=== PATIENT | female | born 1955 | race Caucasian/White ===

== ENCOUNTER 2018-02-08 15:03 | Outpatient (RCR) | payer OTHER, MEDICARE, BC, SELFPAY ==
--- NOTE | 2018-02-08 08:02 | IE_ITS ---
Date: February 08, 2018 Referring: Reji Lombardo M.D. M.D. Diagnosis: bilateral LE lymphedema P.T. Diagnosis: stage II secondary bilateral LE lymphedema SUBJECTIVE: History of Present Illness: Pavan is a 62 year old female reporting in 1972 she was attacked by fire ants on bilateral legs while in [employer]. She reports that following this incident she experienced lymphedema and has been dealing with bilateral LE lymphedema since that time. She states she has received most of her care at the [facility] in [place],including an inpatient stay at one point. She has also been seen at this clinic, [facility], for lymphedema management in the past. She states that due to living alone, her obesity and limited mobility she is having difficulty performing her lymphedema management program at home, including self manual lymphatic drainage and compression wrapping. She does wear Jobst panty hose 30 to 40 mmhg pressure, but they do not fit her at this time. She also has a pair of bilateral Velcro calf and thigh compression garments that she is not able to wear at this time and she has a pneumatic pump at home for bilateral LEs, but it does fit at this time. She states in the past she has hired caregivers to come in daily to assist her with putting her legs in the pneumatic pump and assisting her with her compression garments but she does not have a caregiver since September 2017 and has had increased swelling since September due to inability to maintain the lymphedema management. Patient's goals: Direct treatment of lymphedema including manual lymphatic drainage and compression wrapping in order to decrease limb size to fit into her compression garments and pneumatic pumps, and to be able to restart her home lymphedema management program. Pain Rating: Currently 6/10 Pain Location: Bilateral hips, knees and ankles. Prior Level of Function: Prior to 1972 she had no issues with lymphedema. Since then she has had ongoing issues with her LEs and LE lymphedema, affecting her functional mobility. Current Level of Function: Uses a single point cane for gait mobility and occasionally a walker as needed. Requires elevating bed for legs and head due to LE lymphedema and obstructive sleep apnea. The sleep apnea requires her head to be elevated and the use of CPAP at night. She has a lot of difficulty walking, going up and down stairs, bending to tie her shoes and cut her toenails and put her socks on. The lymphedema swelling affects her appearance. She has difficulty finding clothing that fits, and wears one pair of pants that she has had for years due to the size of her legs. She has difficulty finding shoes and socks that fit, and this affects her self image and appearance. Bilateral legs feel weak with all functional mobility. Previous Treatment: As [facility] L[facility]hedema care at the [facility] in [place] and lymphedema care here at this clinic, see previous note for details. Social: She lives alone in a one level home, no stairs. Baseline mobility: Gait with walker or cane, uses elevating bed for head and legs. 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 She currently has two kittens that she is caring for. She finds it difficult to do so due to difficulty reaching down and cleaning after them. She may re-home them as a result. She is very active in her lymphedema management and plan. Will bring in her garments and compression wraps that she has obtained over the years at her next session. 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 Patient has an extensive medication list. She is allergic to Oxycodone. Quality of Life: __x__ Fair Standardized Measures: LEFS score: __[75% disability]__ Lymphedema Quality of Life Study: see note for details. OBJECTIVE: Gait: The patient enters the clinic with Crocs on for shoes and use of a single point cane. Step through gait pattern with decreased stride, decreased push off , decreased heel strike bilaterally and decreased vishal with a slightly widened base of support. Palpation: The patient is slightly tender to palpation throughout bilateral LEs , primarily at the ankle and lower feet. Skin tone: Flesh tone with slightly pink at distal limbs bilaterally, but overall skin tone is good. No signs of wounds, cellulitis or infection throughout either LE. Edema: Positive for 1+ edema and lymphedema bilateral LEs from hips to dorsum of feet and positive Stemmer's sign bilateral 2nd toes. Left LE appears larger than the right. Circumferential measurements: right LE left LE mid foot: 25 cm. 23.5 cm. 10: 46 cm. 46 cm. 20: 58 cm. 59 cm. 30: 63 cm. 71.5 cm. 40: 58 cm. 66 cm. 50: 65 cm. 74 cm. 60: 79 cm. 81 cm. ROM: Bilateral LE ROM is WFL. Bilateral hip flexion 110 , knee ROM 0 extension to 100 flexion, limited by obesity and ankle ROM is WNL bilaterally. Strength: 3/5 bilateral hip flexion, 4/5 bilateral quadriceps, 4/5 bilateral hamstrings, 5/5 dorsiflexion and plantar flexion bilaterally. Neurological: The patient is intact to light touch for proprioception through bilateral LEs. Motor control and kinestatic awareness are intact. No sensory deficits noted. No peripheral neuropathy. Treatment: Initial evaluation and assessment of functional mobility IE: 28734 x1 Patient Education: The patient was issued a lymphedema educational packet. Reviewed with patient the anatomy and physiology of lymphatic system with descriptions and diagrams. The patient is very familiar with lymphedema, having had this since 1972, but review was appreciated. Issued patient a handout and instructed in skin care and hygiene fibrosis, prevention of lymphedema avoiding infection, contraindications to lymphedema treatments and care of compression garments. The patient verbalized understanding of all above educational information. Discussed with patient the management of lymphedema at this time, including Complete Decongestive Therapy (CDT), consisting of: 1) skin care and hygiene: patient demonstrating good skin care, slightly dry skin at bilateral ankles and heels. She plans to attempt to apply lotion daily. She has Eucerin at home. She has difficulty reaching her feet due to her body mass. 2) manual lymphatic drainage: patient unable to reach LEs to perform self MLD. She is able to reach upper body for lymphatic system activation. Will instruct patient in upper body MLD sequence at next treatment and begin an active manual lymphatic drainage treatment plan 2x per week x4 weeks for bilateral LE lymphedema in order to reduce limb size to assist her in fitting into pneumatic pumps at home so they can provide the MLD she needs on a daily basis. The patient will need to explore options for hiring a caregiver again or someone to come to her home to assist the donning of the pneumatic pumps. 3) compression: at this time the patient wishes to proceed with compression wrapping with TG soft underlay and short stretch compression bandages. The patient was wrapped today. TG soft underlay was applied from foot to thigh, 3 -12 cm. short stretch bandages were applied to bilateral LEs, reaching to just above mid thigh. The patient reported that the compression wraps felt comfortable. She was instructed she can wear the compression wraps up to 48 hours, but instructed to remove with any signs of decreased sensation in the feet, pain or discomfort. She verbalized understanding. She is to bring in her compression wraps and foam pieces at her next session to work with therapy on compression wrapping that will work for her over the treatment plan. She does have Jacquelyn panty hose and Velcro compression garments at home, therefore will not need a longer term compression garment, but she does need to fit into these garments in order to wear them. 4) exercise and elevation: the patient finds it difficult to exercise due to obesity, hip, knee and ankle pain. Discussed with patient the option of aquatic therapy for full body conditioning and exercise. She is to consider this. The patient was performing a MOVE program at the [place], uncertain if she will continue this at this time Due to difficulty laying flat secondary to obstructive sleep apnea and obesity the patient has a difficult time elevation LEs above the heart. She is able to elevate above the hip by elevating the bed at her feet. The patient was instructed to elevate LEs 30 minutes, 1x per day. Direct treatment time: 60 minutes Total treatment time: 60 minutes ASSESSMENT: Patient is a 62-year-old female, referred for PT services with the diagnosis of bilateral LE lymphedema. Patient presents with clinical signs and symptoms consistent with stage II secondary bilateral LE lymphedema, as demonstrated by the following impairment level findings: 1) circumferential measurements 2) 1+ pitting edema with palpation 3) edema in all joints and dorsum of both feet 4) (+) Stemmer's sign bilateral feet Impairments are contributing to the following functional limitations: As listed above, including difficulty finding socks, shoes and clothing that fit due to LE swelling. Difficulty performing ADLs and self care due to LE swelling. Difficulty walking, going up and down stairs and performing functional activities due to LE swelling. See functional limitations indicated above. Patient is assessed as: __x__ Moderate 82023 complexity, based on the following : History: personal limitations include living alone, obesity and deconditioning making it difficult to perform her lymphedema self management program and requiring her to hire help to come into her home on a daily basis for application of compression garments and pneumatic pumps. This may limit her effectiveness with lymphedema management alf. Medical complications limit her ability to perform exercise and elevation of the LEs. Examination: body parts, bilateral LE lymphedema, functional limitations as listed Presentation: Stable Decision-Making: Moderate complexity 75 % Disability based on LEFS Patient requires skilled PT intervention to remediate the above functional limitations to return to: __x__ Improve functional mobility __x__ Improve Quality of Life G-Codes Patient's primary functional limitation is in the category of: __x__ Other Physical/Occupational Therapy primary functional limitation: GP [id number] Projected goal: __x__ Other Physical/Occupational Therapy primary functional limitation: [id number] GOALS STG: __4__ weeks. 1) patient independent with self manual lymphatic drainage for upper body 2) patient independent with issued LE therapeutic exercise program in supine and sitting 3) patient independent in wear of compression short stretch bandages for reduction of lymphedema 4) patient to have 1 cm. reduction in bilateral limb lymphedema LTG: __x6__ weeks. 1) patient able to don and doff Velcro compression garments bilateral LEs 2) patient with 2 cm. reduction in bilateral limb LE lymphedema 3) patient with a plan in place for independent, home management of lymphedema PLAN: Patient to be seen 2x per week, for 6 weeks, adjusting frequency of visits per patient symptoms and response to treatment. Treatment to include: Manual therapy - 04771 - manual lymphatic drainage of bilateral LE lymphedema and instruction in self MLD sequence for bilateral LE lymphedema. Therapeutic exercise - 24754 - bilateral LE lymphedema in supine and while seated Aquatic therapy is recommended for overall body conditioning and lymphedema reduction. Self care training for lymphedema management program, including all aspects of complete decongestive therapy, skin care and hygiene, manual lymphatic drainage , compression wraps or compression garments, use of pneumatic pumps, exercise program and elevation of LEs. Thank you for this referral. Please do not hesitate to contact me with any questions or concerns regarding this patient's plan of care. Sally Garzon PT, CLT Please sign and return to our clinic showing agreement with our POC.......................... Reji Lombardo M.D.
== END 2018-02-10 23:59 | disposition home or self-care (01) ==
LOC: PT 15:03
PROVIDERS: PCP Internal Medicine; Referring Provider Internal Medicine; Visit Provider Internal Medicine
DX: I89.0 Lymphedema, not elsewhere classified (principal)
CPT/HCPCS: 97162

== ENCOUNTER 2019-06-13 21:36 | Emergency (ER) | payer OTHER, MEDICARE, BC, SELFPAY ==
[2019-06-13 21:40] VITALS: BP 172/88; PULSE 117; RESP 21; TEMP 36.6; O2SAT 94
--- NOTE | 2019-06-13 21:44 | W.ED.GENAD ---
Discharge Plan Disposition Patient Disposition: HOME Condition: Good Discharge Details Chief Complaint: Cellulitis Clinical Impression: Cellulitis of leg, right Primary Care Provider: [facility] ED Provider: [facility] Home Meds and New Rx's Prescriptions: New clindamycin HCl 150 mg capsule 450 mg PO TID 10 Days Qty: 90 RF: 0 No Action multivitamin [Daily Multi-Vitamin] 1 EACH tablet 1 tab PO DAILY RF: 0 aspirin 81 MG tablet,delayed release (DR/EC) 81 mg PO DAILY RF: 0 levothyroxine 25 MCG tablet 100 mcg PO DAILY RF: 0 potassium 99 MG tablet 4 tab PO BID RF: 0 calcium carbonate 500 MG tablet,chewable 1 tab PO BID RF: 0 omeprazole 20 MG tablet,delayed release (DR/EC) 20 mg PO DAILY RF: 0 hydrochlorothiazide 25 MG tablet 25 mg PO .QHS RF: 0 zolpidem 5 MG tablet 10 mg PO .QHS PRNRF: 0 loratadine [Claritin] 10 MG tablet 10 mg PO .QHS RF: 0 Stool Softner 3 tab PO .QHS RF: 0 simethicone [Gas-X] 80 MG tablet,chewable 1 tab PO PRN PRNRF: 0 atorvastatin 40 mg Tablet 40 mg PO DAILY RF: 0 meloxicam 15 mg Tablet 15 mg PO DAILY RF: 0 zinc 50 mg Tablet 50 mg PO DAILY RF: 0 Discharge Instructions Instructions: Cellulitis (ED) Additional Instructions: At this time you have notable cellulitis of your right lower extremity. Please monitor extremely closely, take pictures every 24 hours from the same positions to evaluate for change. If you notice any spreading past the line that we stew please return immediately. If you do not notice any improvement over the next 48 to 72 hours please return. Please take the antibiotic as directed. Please also take this with yogurt that has live cultures like activity. If you notice any worsening of your symptoms, or any new symptoms such as vomiting, diarrhea, fever, chills, shortness of breath, chest pain, numbness, weakness, or fainting , please return immediately to the emergency department for reevaluation. Please follow up with your primary care provider as soon as possible for reassessment and reevaluation. As always, it was a pleasure participating in your medical care today. Referrals: [facility] [Primary Care Provider] - Medical Decision Making This is a 63-year-old female with chronic lymphedema who presents for signs and symptoms concerning for cellulitis of the right lower extremity. Symptoms have been present for the last 2 or 3 days, and last 24 hours though she has developed mild fever. She has been taking her Keflex which she has at home for the last 2 years in the scenarios where she does develop mild cellulitis. Unfortunately after 24 hours of treatment with this she has not had any improvement in fact she has had slight worsening. Exam demonstrates mild to moderate redness of the notable anterior lower extremity of the trujillo. There is no evidence of fluctuance but there is mild induration. Signs and symptoms clinically consistent with cellulitis, and inconsistent with necrotizing fasciitis, compartment syndrome or other abnormality. Although the patient is afebrile here, she is mildly tachycardic which may be secondary to her current ambulatory status. We will gently rehydrate, give IV clindamycin, evaluate for indications for admission. 11:25 PM Patient's vital signs have normalized. Laboratory work-up is returned, she does have mild white count of 16, with a mild left shift. Electrolytes normal. Lactate is 0.9. Patient was given IV clindamycin. On reassessment after 1 hour and 40 minutes she actually is beginning to note notable improvement of the redness. I did discuss with the patient admission/observation to the hospital , and at this time through notable discussion, weighing the risks and benefits, utilizing a shared decision making process, and with a very clear discussion on the benefit of admission and the risks associated with discharge including the unlikely but potential worst case scenario of or lifelong disability the patient has refused admission and would like to go home. Respecting the patient's wishes, they will be discharged home. Lactate is unremarkable, and she is actually demonstrating improvement of her cellulitis. However I had a long discussion with her regarding red flags for which to return, the importance of very prompt and close follow-up, close observation of her cellulitis. Patient understands this. She will be given doses of clindamycin to go home with, as well as a prescription to fill. I have extensively reviewed the treatment plan and discharge instructions with the patient and their family. I have addressed all patient concerns at this time. The patient and family was made aware of what symptoms to monitor for that would warrant a return to the emergency department. Discussed the plan with the patient and family, they demonstrate verbal understanding and agreement with our assessment and plan at this time. HPI General Date/Time Provider Initiated Documentation: 06/13/19 21:37. HPI Narrative: Is a 63-year-old female with a past medical history of chronic lymphedema, and previous episodes of cellulitis secondary to this lymphedema who presents today for evaluation of right lower extremity cellulitis. Patient states that for the last 2 to 3 days she has noticed mild redness. Over the last 24 hours though she is developed fever and mild chills. Fever responds well to Tylenol and Motrin. She has had Keflex on standby which she always has in the scenario where she developed mild cellulitis. She has been taking this for the last day but this is not changed any of her symptoms. She does note that the prescription is 2 years old though. She denies any previous history of DVT. Denies PE risk factors such as recent long car rides, immobilization, recent surgery, prior history of DVT or PE, family history of PE or DVT, morbid obesity, exogenous estrogen and smoking, hemoptysis, history of cancer. She has no other complaints at this time. No other modifying factors. She states that there are signs and symptoms at this time feel identical to previous episodes of cellulitis. Related Data Home Medications Medication Instructions Recorded Confirmed Stool Softner 3 tab PO .QHS 02/22/13 06/13/19 aspirin 81 mg PO DAILY 02/22/13 06/13/19 calcium carbonate 1 tab PO BID 02/22/13 06/13/19 hydrochlorothiazide 25 mg PO .QHS 02/22/13 06/13/19 levothyroxine 100 mcg PO DAILY 02/22/13 06/13/19 loratadine [Claritin] 10 mg PO .QHS 02/22/13 06/13/19 multivitamin [Multi Vitamin Daily] 1 tab PO DAILY 02/22/13 06/13/19 omeprazole 20 mg PO DAILY 02/22/13 06/13/19 potassium 4 tab PO BID 02/22/13 06/13/19 zolpidem 10 mg PO .QHS PRN 02/22/13 06/13/19 simethicone [Gas-X] 1 tab PO PRN PRN 09/14/15 06/13/19 atorvastatin 40 mg PO DAILY 01/01/20 01/01/20 clindamycin HCl 450 mg PO TID 10 Days #90 cap 06/13/19 meloxicam 15 mg PO DAILY 06/13/19 06/13/19 zinc 50 mg PO DAILY 06/13/19 06/13/19 Previous Rx's Medication Instructions Recorded clindamycin HCl 450 mg PO TID 10 Days #90 cap 06/13/19 Allergies Allergy/AdvReac Type Severity Reaction Status Date / Time oxycodone HCl [From Percocet] Allergy Severe face swells Unverified 06/13/19 21:44 General Stated Complaint: Cellulitis ARTEM: 3 Review of Systems All systems reviewed & are unremarkable except as noted in HPI and below PFSH Social History Smoking/Tobacco Use Status: Current every day Tobacco Type: cigarettes Alcohol Intake: never Drug use: Never Substance use type: does not use Do you feel safe at home: Yes Do you feel safe in your relationship?: Yes Exam Narrative Exam Narrative: 1.Const: Well-nourished, Well-developed, appearing stated age 2.Eyes: PERRL, no conjunctival injection, and symmetrical lids. 3.ENT: Atraumatic external nose and ears. Moist MM. Neck: Symmetric, trachea midline, No thyromegaly. 4.CVS: +S1/S2, No murmurs or gallops. Peripheral pulses 2+ and equal in all extremities. Brisk capillary refill in all extremities. 5.RESP: Unlabored respiratory effort. Clear to auscultation bilaterally. No wheezes rales or rhonchi 6.GI: Soft, Nontender/Nondistended, No hepatosplenomegaly. No guarding or rebound. 7.MSK: Normocephalic/Atraumatic, Extremities w/o deformity or ttp No cyanosis or clubbing, Normal movement of all extremities. Chronic lymphedema in her lower extremities bilaterally. Mild to moderate erythema in the right lower extremity, in conjunction with mild induration. No fluctuance or evidence of abscess. No acute calf tenderness. Dorsalis pedis and posterior tibial pulses are +2 bilaterally, brisk capillary refill is present. Pain is not out of proportion. No subcutaneous crepitus. 8.Skin: Warm, Dry. No rashes or lesions. 9.Neuro: hand wrapper operator II-XII grossly intact. Sensation grossly intact, no focal neurologic deficits. 10.Psych: (AAO) x3. Appropriate mood and affect Course Vital Signs Vital signs: Vital Signs Temperature 36.6 C 06/13/19 21:40 Pulse 117 H 06/13/19 21:40 Respiratory Rate 21 06/13/19 21:40 Blood Pressure 172/88 H 06/13/19 21:40 Pulse Oximetry 94 L 06/13/19 21:40 Temperature 36.6 C 06/13/19 21:40 Temperature Source Skin 06/13/19 21:40 Pulse 117 H 06/13/19 21:40 Respiratory Rate 21 06/13/19 21:40 Blood Pressure 172/88 H 06/13/19 21:40 Blood Pressure Position Sitting 06/13/19 21:40 Pulse Oximetry 94 L 06/13/19 21:40 Oxygen Delivery Method Room Air 06/13/19 21:40 Oxygen Flow Rate 0 06/13/19 21:40 Pain Level 5 06/13/19 21:40 Lab/Test Results Lab/Test Results: 06/13/19 21:43 Blood Blood Culture - Pending 06/13/19 21:43 Blood Blood Culture - Pending
[2019-06-13] MEDS: CLINDAMYCIN 600 MG/50 ML BAG 100 MG IVPB (22:10)
[2019-06-13] MEDS: Normal Saline 1,000 ML 1000 ML IV (22:12)
[2019-06-13 22:18] LABS: Abs Immature Grans 0.05 k/cumm (0.0-0.09); Absolute Basophil Count 0.02 k/cumm (0.0-0.2); Absolute Eosinophil Count 0.02 k/cumm (0.0-0.7); Absolute Lymphocyte Count 1.31 k/cumm (1.2-3.4); Basophils % 0.1; Eosinophils % 0.1; HCT 46.9 % (36.0-46.0); HGB 16.4 g/dL (12.0-15.5); Immature Grans % 0.3; Mean Corpuscular Hemoglobin 31.8 pg (27.0-33.0); Mean Corpuscular Volume 91.1 fL (80-95); Mean Platelet Volume 12.1 fL (8.0-11.0); Monocytes % 3.4; Neutrophils % 88.1; Platelet Count 154 x1000/uL (130-400); RBC 5.15 m/cumm (4.00-5.20); RBC Distribution Width 13.8 % (11.7-14.6); White Blood Cell Count 16.32 k/cumm (4.4-10.8)
[2019-06-13 22:19] LABS: Absolute Monocyte Count 0.55 k/cumm (0.11-0.7); Absolute Neutrophil Count 14.38 k/cumm (1.2-6.7)
[2019-06-13 22:30] LABS: ALT 30 U/L (14-59); AST 20 U/L (15-37); Albumin 3.1 g/dL (3.4-5.0); Alkaline Phosphatase 93 U/L (46-116); Anion Gap 12.3 mmol/L (3-11); BUN 15 mg/dL (7-18); CO2 26.7 mmol/L (21.0-32.0); Calcium 8.9 mg/dL (8.5-10.1); Chloride 101 mmol/L (98-107); Glucose 113 mg/dL (74-106); Potassium 3.5 mmol/L (3.5-5.1); Sodium 140 mmol/L (136-145); Total Protein 7.4 g/dL (6.4-8.2)
[2019-06-13 22:51] LABS: Lactate 0.9 mmol/L (0.6-1.4)
[2019-06-13] MEDS: Clindamycin 150 MG CAP, 12 CAPS/BTL 450 MG PO (23:35)
[2019-06-13 23:38] VITALS: BP 132/78; PULSE 101; RESP 18; TEMP 36.7; O2SAT 97
== END 2019-06-13 23:40 | disposition home or self-care (01) ==
PROVIDERS: Emergency Provider Student in an Organized Health Care Education/Training Program; PCP Internal Medicine
DX: L03.115 Cellulitis of right lower limb (principal); Z87.2 Personal history of diseases of the skin and subcutaneous tissue
CPT/HCPCS: 80053; 87040; 96361; 96365; 99284; 83605; 85025

== ENCOUNTER 2020-06-30 00:23 | Outpatient (CLI) | payer OTHER, MEDICARE, BC, SELFPAY ==
--- NOTE | 2020-06-30 13:24 | DI.MAMMO_ITS ---
EXAM: MG MAMMO SCREENING CLINICAL HISTORY: SCREENING, Z12.39,[id number] TECHNIQUE: Bilateral full field digital CC and MLO mammographic images were obtained with 3D tomosyn thesis and utilizing computer aided detection (CAD). COMPARISON: Available for comparison. FINDINGS: Masses/Architectural Distortion: No suspicious masses are present. There are scattered fibronodular densities. Microcalcifications: No suspicious pleomorphic-type are seen. Skin Thickening/Nipple Retraction: None. IMPRESSION: 1. No significant interval change with no specific features of malignancy noted. 2. Unless there is more urgent need, screening mammography is recommended, as per [employer] guidelines. BI-RADS Category 2 - Benign Findings Breast Density - Category B - Scattered areas of fibroglandular density Breast density category C or D implies that the patient has dense breast tissue. Dense breast tissue is very common and is not abnormal but dense breast tissue can make it harder to find cancer on a ma mmogram. Also, dense breast tissue may increase their breast cancer risk. This information about the result of the mammogram report was provided to the patient to raise their awareness. Use this report when you speak with the patient about their risks for breast cancer, which includes their family hist ory. At that time, you may recommend for more screening tests (Ultrasound or MRI) as they might be us eful based on their risk. A negative radiographic report should not delay biopsy if a dominant or clinically suspicious mass is present. Up to ten percent of cancers are not identified on mammography. A negative report may reinforce clinical impression. Adenosis and dense breasts may obscure an underlying neoplasm. False positive reports average 6 to 10%. Patient will receive a letter notifying them of these results.
== END 2020-06-30 00:43 ==
PROVIDERS: PCP Internal Medicine; Visit Provider Internal Medicine
DX: Z12.31 Encounter for screening mammogram for malignant neoplasm of breast (principal)
CPT/HCPCS: 77063; 77067

== ENCOUNTER 2020-07-02 16:18 | Emergency (ER) | payer OTHER, MEDICARE, BC, SELFPAY ==
--- NOTE | 2020-07-02 16:30 | DI.RAD_ITS ---
EXAM: XR RIBS RT W PA LAT CHEST CLINICAL HISTORY: Right rib pain after coughing TECHNIQUE: 2D digital imaging was performed. COMPARISON: No exams were available for comparison FINDINGS: MEDIASTINUM: Normal. HEART: Normal. PULMONARY VASCULATURE: Normal. LUNGS: Clear. PLEURAL SPACE: No pleural effusion or pneumothorax. BONE:Normal. RIGHT RIBS: Normal. OTHER FINDINGS:Normal. IMPRESSION: 1. No acute pulmonary findings. 2. Unremarkable right ribs. DATA REPOSITORY: RADIATION DOSE DELIVERED:
--- NOTE | 2020-07-02 16:42 | ED.GENADUL_ITS ---
Discharge Plan Disposition Patient Disposition: HOME Condition: Stable Discharge Details Clinical Impression: Closed rib fracture Primary Care Provider: [facility] ED Provider: Maureen Hood Home Meds and New Rx's Prescriptions: Continued multivitamin [Daily Multi-Vitamin] 1 EACH tablet 1 tab PO DAILY RF: 0 aspirin 81 MG tablet,delayed release (DR/EC) 81 mg PO DAILY RF: 0 levothyroxine 25 MCG tablet 100 mcg PO DAILY RF: 0 potassium 99 MG tablet 4 tab PO BID RF: 0 calcium carbonate 500 MG tablet,chewable 1 tab PO BID RF: 0 omeprazole 20 MG tablet,delayed release (DR/EC) 20 mg PO DAILY RF: 0 hydrochlorothiazide 25 MG tablet 25 mg PO .QHS RF: 0 zolpidem 5 MG tablet 10 mg PO .QHS PRNRF: 0 loratadine [Claritin] 10 MG tablet 10 mg PO .QHS RF: 0 Stool Softner 3 tab PO .QHS RF: 0 simethicone [Gas-X] 80 MG tablet,chewable 1 tab PO PRN PRNRF: 0 atorvastatin 40 mg Tablet 40 mg PO DAILY RF: 0 meloxicam 15 mg Tablet 15 mg PO DAILY RF: 0 zinc 50 mg Tablet 50 mg PO DAILY RF: 0 Discharge Instructions Instructions: Rib Fracture (ED) Additional Instructions: Your x-ray today showed a single rib fracture on the 10th posterior rib no evidence of pneumonia or fluid in your lungs. Continue with deep breathing. Return to the ED for any productive cough, fever, pain not relieved by Tylenol or ibuprofen. Follow up with primary care provider in 3-5 days. Return to ED sooner if any worsening or concerns. Increase oral fluids. Please take Tylenol or Ibuprofen with food every 4-6 hours as needed for pain and swelling. Referrals: [facility] [Primary Care Provider] - Discharge Data Discharge Date/Time-TO BE ENTERED AT DEPARTURE: 07/02/20 17:52 Medical Decision Making Was coughing and felt a pop and right rib pain prior to arrival. Speaking in full sentences. Is a smoker. Lung sounds are clear to auscultation bilaterally. Patient does have a past medical history of high cholesterol, hypertension, hyp othyroidism, GERD. Imaging protocol: XR Right ribs. Views: 2 views. COMPARISON: No relevant prior studies available. FINDINGS: Bones/joints: Nondisplaced posterior right 10th rib fracture. Pleural space: No right pneumothorax or hemothorax. Soft tissues: Normal. IMPRESSION: Nondisplaced posterior right 10th rib fracture. Lungs: The lungs are clear without opacity or suspicious parenchymal finding. Pleural space: Unremarkable. No pleural effusion. No pneumothorax. Heart/Mediastinum: Unremarkable. No cardiomegaly. Vasculature: Calcifications in the aortic arch. Bones/joints: Unremarkable. IMPRESSION: No acute cardiopulmonary process. Thank you for allowing us to participate in the care of your patient. Discussed x-ray results with patient who verbalized understanding. Will instruct patient to take Tylenol or ibuprofen for pain, discussed home care and strict return instructions. HPI General Mode of arrival: ambulatory . Date/Time Provider Initiated Documentation: 07/02/20 16:42 . Limitations to Documentation: no limitations . Information obtained by: patient . HPI Narrative: Was coughing and felt a pop and right rib pain prior to arrival. Speaking in full sentences. Is a smoker. Lung sounds are clear to auscultation bilaterally. Patient does have a past medical history of high cholesterol, hypertension, hypothyroidism, GERD. Related Data Home Medications Medication Instructions Recorded Confirmed Stool Softner 3 tab PO .QHS 02/22/13 06/13/19 aspirin 81 mg PO DAILY 02/22/13 06/13/19 calcium carbonate 1 tab PO BID 02/22/13 06/13/19 hydrochlorothiazide 25 mg PO .QHS 02/22/13 06/13/19 levothyroxine 100 mcg PO DAILY 02/22/13 06/13/19 loratadine [Claritin] 10 mg PO .QHS 02/22/13 06/13/19 multivitamin [Daily Multi-Vitamin] 1 tab PO DAILY 02/22/13 06/13/19 omeprazole 20 mg PO DAILY 02/22/13 06/13/19 potassium 4 tab PO BID 02/22/13 06/13/19 zolpidem 10 mg PO .QHS PRN 02/22/13 06/13/19 simethicone [Gas-X] 1 tab PO PRN PRN 09/14/15 06/13/19 atorvastatin 40 mg PO DAILY 06/13/19 06/13/19 meloxicam 15 mg PO DAILY 06/13/19 06/13/19 zinc 50 mg PO DAILY 06/13/19 06/13/19 Allergies Allergy/AdvReac Type Severity Reaction Status Date / Time oxycodone HCl [From Percocet] Allergy Severe face swells Unverified 06/13/19 2 1:44 General ARTEM: 3 Review of Systems Narrative: Constitutional: Negative for weight loss, alert and oriented, well groomed, obese body habitus, appears comfortable. HEENT: Denies trauma, headaches, blurry vision, nasal discharge, sore throat, trouble swallowing. Chest: Denies chest pain, palpitations, irregular rhythm, hypertension. Right- sided rib pain. Respiratory: Denies Shortness of breath, hemoptysis. GI: Denies abdominal pain, nausea, vomiting, diarrhea, constipation. : Denies dysuria, hematuria, flank pain, rectal bleeding. Neuro: Denies dizziness, blurry vision, weakness, syncope, headache or facial numbness. Hematologic: Denies easy bruising, intolerance to heat or cold, hair loss. PFSH Social History Smoking/Tobacco Use Status: Current every day Tobacco Type: cigarettes Smoking risk assessment performed?: Yes Alcohol Intake: never Drug use: Never Substance use type: does not use Current gender identity: female Do you feel safe at home: Yes Do you feel safe in your relationship?: Yes Exam Narrative Exam Narrative: Constitutional: Alert and oriented x3. Appears stated age. Obese body habitus. Head: Normocephalic, no trauma. Eyes: Pupils PERRLA, Red reflex noted, EOM's intact. Eyelids symmetrical without lesions, discharge, or swelling. ENT: Bilateral TM's WNL, External ear normal to inspection, no mastoid TTP, swelling, or erythema, Nasal turbinates WNL, no nasal discharge. Normal dentition, Posterior pharynx WNL, no exudate. Chest: RRR, Normal S1, S2, distal pulses intact. Tender over the right anterior rib cage. No ecchymosis, step-off or crepitus palpated. Resp: Lungs clear to auscultation bilaterally, no wheezes, rales, or rhonchi. Musculoskeletal: Normal gait, 5/5 strength to all four extremities. Skin: No suspicious rashes or lesions. Capillary refill less than 2 sec. Neurologic: Cranial nerves II-XII intact. Alert and oriented x 3. DTR's intact. Hematologic/Lymphatic: No ecchymosis, no lymphadenopathy.
[2020-07-02 17:00] VITALS: BP 172/80; PULSE 93; RESP 20; TEMP 36.7; O2SAT 92
--- NOTE | 2020-07-02 17:21 | DI.VRAD_ITS ---
PROCEDURE INFORMATION: Exam: XR Right Ribs Exam date and time: 07/02/2020 4:45 PM Age: 64 years old Clinical indication: Other: Right rib pain after coughing TECHNIQUE: Imaging protocol: XR Right ribs. Views: 2 views. COMPARISON: No relevant prior studies available. FINDINGS: Bones/joints: Nondisplaced posterior right 10th rib fracture. Pleural space: No right pneumothorax or hemothorax. Soft tissues: Normal. IMPRESSION: Nondisplaced posterior right 10th rib fracture. PROCEDURE INFORMATION: Exam: XR Chest, 2 Views Exam date and time: 07/02/2020 4:45 PM Age: 64 years old Clinical indication: Other: Right rib pain after coughing TECHNIQUE: Imaging protocol: XR of the chest Views: 2 views. COMPARISON: No relevant prior studies available. FINDINGS: Lungs: The lungs are clear without opacity or suspicious parenchymal finding. Pleural space: Unremarkable. No pleural effusion. No pneumothorax. Heart/Mediastinum: Unremarkable. No cardiomegaly. Vasculature: Calcifications in the aortic arch. Bones/joints: Unremarkable. IMPRESSION: No acute cardiopulmonary process. Dictated and Authenticated by: Nevaeh Anton MD. Ordering:SALLY Reddy MD
[2020-07-02 17:50] VITALS: PULSE 92; RESP 20; TEMP 36.8; O2SAT 94
== END 2020-07-02 17:52 | disposition home or self-care (01) ==
PROVIDERS: Emergency Provider Registered Nurse Emergency; PCP Internal Medicine
DX: S22.31XA Fracture of one rib, right side, initial encounter for closed fracture (principal); X50.9XXA Other and unspecified overexertion or strenuous movements or postures, initial encounter; F17.210 Nicotine dependence, cigarettes, uncomplicated; I10 Essential (primary) hypertension
CPT/HCPCS: 99283; 71046; 71100